=== PATIENT | female | born 1985 | race African-American/Black ===

== ENCOUNTER 2017-12-28 16:54 | Emergency (ER) | payer BC ==
[2017-12-29 07:15] LABS: NEGATIVE OBC STREP NEG; POSITIVE OBC STREP POS
== END 2017-12-28 18:00 | disposition home or self-care (01) ==
LOC: ER 16:54
DX: J02.9 Acute pharyngitis, unspecified (principal)
CPT/HCPCS: 87070; 87880; 99283